=== PATIENT | male | born 1980 | race American Indian/Alaskan Native ===

== ENCOUNTER 2019-06-08 13:09 | Emergency (ER) | payer SELFPAY ==
[2019-06-08 13:17] VITALS: BP 138/85
--- NOTE | 2019-06-08 14:43 | Event Note ---
ED Screening Note Date of service: 06/08/19 Time: 14:39 ED Screening Note: 38 yo male presents with low back pain worsening with movement Pt states he was lifting weights this morning and thinks he may have twisted or injured a muscle He denies any falling or trauma to back, denies urinary symptoms This initial assessment/diagnostic orders/clinical plan/treatment(s) is/are subject to change based on patients health status, clinical progression and re- assessment by fellow clinical providers in the ED. Further treatment and workup at subsequent clinical providers discretion. Patient/guardian urged not to elope from the ED as their condition may be serious if not clinically assessed and managed. Initial orders include: Pt presents with a non-medical emergency Examination is normal, Vital sign are stable Pt given information for clinics to follow up with pcp for further treatment and evaluation Also discussed strict return precautions in detail with pt who verbalized understanding
== END 2019-06-08 14:48 | disposition left against medical advice (07) ==
LOC: ED 13:09
DX: R06.00 Dyspnea, unspecified (principal); Z53.21 Procedure and treatment not carried out due to patient leaving prior to being seen by health care provider

== ENCOUNTER 2019-07-17 12:56 | Emergency (ER) | payer SELFPAY ==
--- NOTE | 2019-07-17 13:47 | Event Note ---
ED Screening Note ED Screening Note: left pinky pain states that he tripped and fell and caught himself with his weight on his left pinky has injured this pinky before no PMHx no allergies to meds right hand dominant This initial assessment/diagnostic orders/clinical plan/treatment(s) is/are subject to change based on patients health status, clinical progression and re- assessment by fellow clinical providers in the ED. Further treatment and workup at subsequent clinical providers discretion. Patient/guardian urged not to elope from the ED as their condition may be serious if not clinically assessed and managed. Initial orders include: xr left hand
--- NOTE | 2019-07-17 14:27 | XRay Report ---
LEFT HAND 3 VIEWS INDICATION / CLINICAL INFORMATION: left pinky injury, fell onto it COMPARISON: None available. FINDINGS: BONES / JOINT(S): Oblique fracture involving the proximal phalanx of the fifth digit. This extends to the radial aspect of the proximal interphalangeal joint. It cannot be determined at the joint is inv olved. No significant arthritis. SOFT TISSUES: Soft tissue swelling base of fifth digit. ADDITIONAL FINDINGS: None. Signer Name: Maurice Iglesias MD Signed: 07/17/2019 2:23 PM Workstation Name: [id number]
[2019-07-17] MEDS ORDERED: HYDROcodone/ACETAMINOPHEN 10-325MG TAB PO ONE (17:12)
--- NOTE | 2019-07-17 17:30 | Emergency Department Report ---
Upper Extremity - HPI Chief Complaint: Extremity Injury, Upper Stated Complaint: LT HAND POSS BROKEN Time Seen by Provider: 07/17/19 13:44 Upper Extremity: Left Hand Occurred When: Today Mechanism: Fall, Other (patient states he tried to break his fall and landed on his outstretched left hand.) Severity: moderate, severe Symptoms: Yes Pain with Movement, Yes Limited Range of Movement, Yes Swelling, No Deformity, No Numbness, No Weakness, No Bruising/Ecchymosis ED Review of Systems ROS: Stated complaint: LT HAND POSS BROKEN Other details as noted in HPI Comment: All other systems reviewed and negative Eyes: denies: eye pain ENT: denies: throat pain Cardiovascular: denies: chest pain Gastrointestinal: denies: abdominal pain Musculoskeletal: joint swelling (left 5th finger swelling). denies: back pain Neurological: denies: headache, numbness, paresthesias, abnormal gait ED Past Medical Hx - Past Medical History Previous Medical History?: No - Surgical History Past Surgical History?: No - Social History Smoking Status: Never Smoker Substance Use Type: None - Medications Home Medications: Home Medications Medication Instructions Recorded Confirmed Last Taken Type HYDROcodone/APAP 5-325 [Chester 1 each PO Q6HR PRN #16 tablet 07/17/19 Unknown Rx 5/325] Upper Extremity Exam - Exam General: Vital signs noted. No distress. Alert and acting appropriately. Head and Torso: No HEENT Abnormality, No Neck Tenderness, No Chest/Lungs Abnormality, No Abdominal Tenderness, No Back Tenderness Shoulder Exam: No Shoulder Tenderness, No Clavicle Tenderness, No Normal Range of Motion in Shoulder, No Shoulder Deformity, No AC Joint Tenderness Arm Exam: No Arm/Humerus Tenderness, No Arm Deformity Elbow: No Elbow Tenderness, No Normal Range of Motion in Elbow, No Elbow Deformity Forearm: No Forearm Tenderness, No Forearm Deformity, No Pain with Pronation, No Pain with Supination Wrist: No Wrist Tenderness, No Normal ROM in Wrist, No Wrist Deformity, No Snuffbox Tenderness, No Pain with Axial Thumb Compression Hand: Yes Digit Tenderness (left 5th finger), Yes Digit(s) Deformity (swelling of proximal [id number] digit) CMS Exam: No Broken Skin, No Normal Distal Pulses, No Normal Capillary Refill, No Normal Distal Sensation ED Course Vital Signs 07/17/19 13:45 Temperature 98 F Pulse Rate 81 Respiratory 18 Rate Blood Pressure 142/75 O2 Sat by Pulse 100 Oximetry - Reevaluation(s) Reevaluation #1: 07/17/19 17:29 X-ray reveals an oblique fracture involving the proximal phalanx of the fifth digit it cannot be determined if joint is involved. X-ray results were reviewed with the patient. ED Medical Decision Making - Radiology Data Radiology results: report reviewed FINDINGS: BONES / JOINT(S): Oblique fracture involving the proximal phalanx of the fifth digit. This extends to the radial aspect of the proximal interphalangeal joint. It cannot be de termined at the joint is involved. No significant arthritis. SOFT TISSUES: Soft tissue swelling base of fifth digit. - Medical Decision Making 38-year-old male slipped and tried to break his fall with his outstretched left hand. X-ray done of his left hand shows oblique fracture involving the proximal phalanx of the left fifth digit is unclear whether there is joint involvement. She is fitted with a ulnar gutter splint. Chester prescribed for pain. He has ibuprofen 800 mg at home that he can use for milder pain. Stressed importance of patient following up with orthopedic doctor. Is given to see Dr. Leo. On examination patient's neurovascular intact. Cap refill of that left finger is 1-2 seconds sensation intact positive radial pulse. Critical Care Time: No Critical care attestation.: If time is entered above; I have spent that time in minutes in the direct care of this critically ill patient, excluding procedure time. ED Disposition Clinical Impression: Fracture of proximal phalanx of digit of hand Disposition: DC-01 TO HOME OR SELFCARE Is pt being admited?: No Does the pt Need Aspirin: No Condition: Stable Instructions: Finger Fracture (ED) Additional Instructions: Keep splint in place. Make an appointment with Dr. Leo orthopedic doctor as soon as possible. Take pain medication as prescribed. Cool compress apply at least 2-3 times a day. Prescriptions: HYDROcodone/APAP 5-325 [Chester 5/325] 1 each PO Q6HR PRN #16 tablet PRN Reason: Pain Referrals: LYDIA LEO MD [Staff Physician] - 3-5 Days Time of Disposition: 17:35
[2019-07-17 18:04] VITALS: BP 140/71
== END 2019-07-17 18:03 | disposition home or self-care (01) ==
LOC: EDBD → ED 12:56
DX: S62.617A Displaced fracture of proximal phalanx of left little finger, initial encounter for closed fracture (principal); Z79.899 Other long term (current) drug therapy; W01.0XXA Fall on same level from slipping, tripping and stumbling without subsequent striking against object, initial encounter; Y93.89 Activity, other specified; Y92.89 Other specified places as the place of occurrence of the external cause; Y99.8 Other external cause status